=== PATIENT | male | born 1965 | race Caucasian/White ===

== ENCOUNTER 2021-04-29 12:00 | Emergency (ER) | payer OTHER, SELFPAY ==
--- NOTE | ~2021-04-29 | XR_ITS ---
XR chest 1V 04/29/2021 12:31 Indication: Low oxygen saturation. Dyspnea. Procedure: AP portable chest Comparison: No prior studies for comparison. Findings: Heart size normal. There is right upper lobe airspace consolidation. No pleural effusion. N o pneumothorax. No acute osseous abnormality. Impression: 1: Right upper lobe airspace consolidation, consistent with pneumonia. Reviewed, dictated and finalized at location B. Impression: 1: Right upper lobe airspace consolidation, consistent with pneumonia.
[2021-04-29 12:19] VITALS: BP 118/61; PULSE 121; RESP 42; TEMP 38.3; O2SAT 92
--- NOTE | 2021-04-29 12:33 | ED.GENADULT ---
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 Patient and friend indicate he is been sick for about 1 week with history of cough, right upper back pain. Symptoms are moderate, worse with sleeping/supine at night, associated with loose stools diarrhea/dehydration and some weight loss. Vital signs remarkable for pulse 120s, febrile 100.9, pulse ox 92 ; patient advised to go to hospital to which he agrees. Related Data Home Medications Medication Instructions Recorded Confirmed No Home Medications 04/29/21 04/29/21 Allergies Allergy/AdvReac Type Severity Reaction Status Date / Time No Known Allergies Allergy Verified 04/29/21 12:45 Review of Systems Review of Systems: Narrative: General/Constitutional: weight loss, REPORTS possible fever Eyes: N0: Redness,discharge Ears/Nose/Throat: No: Epistaxis,ear discharge Respiratory: Denies: Hemoptysis Gastrointestinal: No Vomiting, Bleeding-rectal Skin: No Lumps, eruption Neurologic: No Focal Weakness,Sz Hematologic: Denies: Petechiae/Purpura Psychiatric: No: Suicida ideationl All Other Systems: Reviewed and Negative PMFSH Comments At time of signature, agree with nursing past medical, surgical, social and family history. There is no relevant family history pertinent to the presenting complaint Exam Narrative: Exam Narrative: General Appearance: Thin/lean, unwell, EYE: PERRLA, Conjunctiva clear Nose: Rhinorrhea, Mucousal erythema Mouth/Throat: MM dry, Uvula midline, Pharyngeal erythema Neck: Supple, No adenopathy Respiratory: Tachypneic, increased AP diameter, decreased BS justice right Cardiovascular: Tacky RRR, No JVD Musculoskeletal: Non tender, Normal strength Skin: Warm, Dry Neurological: A&O x3, CN II-XII intact Psychiatric: Normal mood, Normal affect Course Course Emergency Course: Films visualized, interpreted by radiologist, agree, ABnormal see report Vital Signs Vital signs: Vital Signs Temperature 100.9 F H 04/29/21 12:19 Pulse Rate 121 H 04/29/21 12:19 Respiratory Rate 42 H 04/29/21 12:19 Blood Pressure 118/61 04/29/21 12:19 Pulse Oximetry 92 04/29/21 12:19 Temperature 100.9 F H 04/29/21 12:19 Pulse Rate 128 H 04/29/21 12:55 Respiratory Rate 40 H 04/29/21 12:34 Blood Pressure 118/61 04/29/21 12:19 Pulse Oximetry 95 04/29/21 12:55 Medical Decision Making MDM Narrative Medical decision making narrative: MDM Med Decision Making DATA REVIEWED LAB: RADIOLOGY: ordered & reviewed PMH RECORDS: reviewed DISCUSSED: with another provider TEST : personally over-read RISKS of M &M CC/PROBLEM severe PROCEDURE low Tx OPTIONS Vital Signs Vital Signs: Vital Signs Temperature 100.9 F H 04/29/21 12:19 Pulse Rate 121 H 04/29/21 12:19 Respiratory Rate 42 H 04/29/21 12:19 Blood Pressure 118/61 04/29/21 12:19 Pulse Oximetry 92 04/29/21 12:19 Temperature 100.9 F H 04/29/21 12:19 Pulse Rate 128 H 04/29/21 12:55 Respiratory Rate 40 H 04/29/21 12:34 Blood Pressure 118/61 04/29/21 12:19 Pulse Oximetry 95 04/29/21 12:55 Lab Data Labs: Lab Results 04/29/21 Range/Units 12:32 POC SARS CoV-2 Ag Negative (Negative) Critical Care Time Critical Care Time Critical Care Time: Yes Total Critical Care Time: 30 Discharge Plan Discharge Clinical Impression: Hypoxemia Pneumonia involving right lung Qualifiers: Pneumonia t
[2021-04-29 12:34] VITALS: PULSE 124; RESP 40; O2SAT 92
[2021-04-29] MEDS: IPRATROPIUM BR 0.02% INH SOLN 0.5 MG/2.5 ML VIAL INHALATION (12:34)
[2021-04-29] MEDS: ALBUTEROL SULFATE NEB 2.5 MG/0.5 ML INH INHALATION (12:34)
[2021-04-29] MEDS: AZITHROMYCIN 250 MG TABLET 500 MG PO (12:39)
[2021-04-29 12:55] VITALS: PULSE 128; O2SAT 95
--- NOTE | 2021-04-29 13:28 | PC.NURSE ---
1255-EMS here. Neb treatment almost completed. Pt transferred to EMS stretcher with standby assist. Bedside report given to EMS. Pt appears slightly less tachypneic at this time. Still pale.
== END 2021-04-29 12:55 | disposition short-term general hospital (02) ==
PROVIDERS: Emergency Provider Emergency Medicine
DX: R09.02 Hypoxemia (principal); J18.1 Lobar pneumonia, unspecified organism; Z20.822 Contact with and (suspected) exposure to COVID-19
CPT/HCPCS: 71045; 87426; 94640; 99215; A9270; C9803; G0463

== ENCOUNTER 2021-04-29 13:16 | Inpatient (IN) | payer OTHER, SELFPAY ==
[2021-04-29] VITALS (8 sets, daily range): BP systolic 90–118; BP diastolic 60–78; PULSE 87–115; RESP 16–37; TEMP 36.6–37.4; O2SAT 91–97; BMI 15.9
--- NOTE | ~2021-04-29 | XR_ITS ---
XR chest 2V 05/02/2021 11:31 Indication: Right upper lobe pneumonia. Dyspnea. Procedure: 2 view chest Comparison: 04/29/2021 Findings: Slightly improved aeration with persistent extensive pneumonia of the right upper lobe. Hea rt size normal. Left lung clear. No pleural effusion or pneumothorax. No acute osseous abnormality. Impression: 1: Subtle improvement of extensive right upper lobe pneumonia. Reviewed, dictated and finalized at location B. Impression: 1: Subtle improvement of extensive right upper lobe pneumonia.
--- NOTE | ~2021-04-29 | CT_ITS ---
EXAMINATION:CT diagnostic chest w con DATE: 05/02/2021 17:24 INDICATION: Right upper lobe pneumonia. Leukocytosis. TECHNIQUE: Computed tomography (CT) of the chest was performed with 75 mL Omnipaque 350 intravenous c ontrast. Automated exposure control and iterative reconstruction technique were employed. The dose-le ngth product (DLP) was 138.40 mGy-cm. COMPARISON: Chest 2 views 05/02/2021 FINDINGS: There is moderate emphysema. There is extensive airspace opacities in right upper lobe with extensive cavitation. There are centrilobular nodules with cavitation in right lower lobe. There are nodules in right middle lobe and left upper lobe. No pleural effusion. The heart size is normal. The re is a small pericardial effusion. There is mild right hilar and mediastinal lymphadenopathy. There is mild thoracic spondylosis. IMPRESSION: 1. Extensive necrotizing pneumonia in right lung upper lobe. Mild pneumonia involving right lower lob e, right middle lobe, and left upper lobe. 2. Mild right hilar and mediastinal lymphadenopathy, likely reactive. 3. Moderate emphysema. 4. Small pericardial effusion. Reviewed, dictated and finalized at location A. IMPRESSION: 1. Extensive necrotizing pneumonia in right lung upper lobe. Mild pneumonia inv olving right lower lobe, right middle lobe, and left upper lobe. 2. Mild right hilar and mediastinal lymphadenopathy, likely reactive. 3. Moderate emphysema. 4. Small pericardial effusion.
--- NOTE | ~2021-04-29 | XR_ITS ---
EXAMINATION: XR chest 2V EXAM DATE: 04/29/2021 14:10 INDICATION: Shortness of breath. Pneumonia. TECHNIQUE: Frontal and lateral projections of the chest obtained and reviewed. Comparison is made to prior examination from earlier same day. FINDINGS: Dense right upper lobe consolidation, appearance most consistent with bacterial pneumonia b ut follow-up exam to resolution is indicated to exclude any underlying cancer. The lungs are otherwis e clear. There are no pleural effusions. The cardiomediastinal silhouette is within normal limits. There is no pneumothorax suspected. The bones and soft tissues are unremarkable. IMPRESSION: Dense right upper lobe consolidation probably bacterial pneumonia; recommend 1 month foll ow-up exam. Reviewed, dictated and finalized at location A. IMPRESSION: Dense right upper lobe consolidation probably bacterial pneumonia; recommend 1 month follow-up exam.
--- NOTE | ~2021-04-29 | US_ITS ---
EXAMINATION: US abdomen limited EXAM DATE: 05/02/2021 11:35 INDICATION: Elevated liver function tests. Low albumin level. TECHNIQUE: Multiple grayscale and Doppler images of the abdomen right upper quadrant were obtained (marita y a technologist who performed the scan) and subsequently reviewed. There is no prior study for wesley lechuga. FINDINGS: The pancreatic head and body are normal in appearance. The pancreatic tail is not visualized. The l iver has normal echogenicity and contour. There are no focal liver lesions identified. There is no evidence of intrahepatic biliary duct dilation. Portal venous flow was seen in the hepatopedal, nor mal direction and has normal Doppler waveform. No right-sided hydronephrosis. Common bile duct measures 3 mm, which is normal. Gallbladder is contracted, with wall thickness of 3 mm probably from contracted state. There is no pericholecystic fluid or cholelithiasis. IMPRESSION: 1. Unremarkable abdominal ultrasound exam. Reviewed, dictated and finalized at location A.
--- NOTE | 2021-04-29 13:19 | ECG_ITS ---
Measurements Intervals [place] Rate: 116 P: 64 MD: 134 QRS: 93 QRSD: 90 T: 60 QT: 434 QTc: 605 Interpretive Statements SINUS TACHYCARDIA RIGHT AXIS DEVIATION BORDERLINE ST-T WAVE ABNORMALITY- ANTEROLAT/INF LEADS BASELINE ARTIFACT- II, V4-V6 ABNORMAL ECG Electronically Signed On 04-29-2021 21:04:05 CDT by Dann Kincaid D.O.
--- NOTE | 2021-04-29 14:38 | ED.SOB ---
HPI - SOB/Dyspnea General Chief Complaint: Shortness of Breath/Dyspnea Stated Complaint: SOB Time Seen by Provider: 04/29/21 14:37 Source: patient and EMS Mode of arrival: EMS Limitations: no limitations History of Present Illness HPI Narrative: Patient is a 55-year-old male with no past medical history who presents for evaluation of shortness of breath. Patient initially presented to an urgent care where he was found to be tachycardic, tachypneic, hypoxic, given a breathing treatment and ultimately transported to our facility via EMS. Patient denying any current chest pain. He reports mild cough without hemoptysis. He reports shortness of breath. He reports low-grade fever. He denies history of COPD, but states that he has been a heavy smoker most of his life. He currently is still smoking. He denies history of cancer. Denies any focal weakness or numbness. Patient denies any drug use. Patient denies history of Covid. He is not vaccinated. Pt also reporting history of diarrhea over past week. He states his COVID swab was negative. Related Data Home Medications Medication Instructions Recorded Confirmed No Home Medications 04/29/21 04/29/21 Allergies Allergy/AdvReac Type Severity Reaction Status Date / Time No Known Allergies Allergy Verified 04/29/21 12:45 Review of Systems Review of Systems: Narrative: CONSTITUTIONAL: Reports fever and chills EYES: Denies visual changes, redness, or discharge. ENT: Denies rhinorrhea, congestion, sore throat, or otalgia. CARDIOVASCULAR: Denies chest pain, palpitations, or edema. RESPIRATORY: Reports cough and shortness of breath GASTROINTESTINAL: Denies abdominal pain, reports nausea and diarrhea GENITOURINARY: Denies dysuria or hematuria. SKIN: Denies rash or itching. MUSCULOSKELETAL: Denies back pain, joint pain, or myalgia. NEUROLOGIC: Denies headache, numbness, or weakness. Exam Narrative: Exam Narrative: GENERAL: Awake, alert, conversant, thin HEAD: Normocephalic, atraumatic. EYES: PERRLA and EOMI. ENT: Nares clear, no rhinorrhea or epistaxis. Mucous membranes dry NECK: Supple. CHEST: Respiratory distress, tachypneic, increased work of breathing with use of abdominal accessory muscles to breathe, coarse breath sound right upper airway, diminished aeration both lung bases HEART: Tachycardic rate, sinus rhythm ABDOMEN:Non distended, non tender EXTREMITIES: Normal range of motion. No edema. SKIN: Warm, dry, no rash. NEURO:No focal deficits. Alert and oriented x3 Course Vital Signs Vital signs: Vital Signs Temperature 37.4 C 04/29/21 13:16 Pulse Rate 115 H 04/29/21 13:16 Respiratory Rate 37 H 04/29/21 13:16 Blood Pressure 102/78 04/29/21 13:16 Pulse Oximetry 95 04/29/21 13:16 Temperature 37.4 C 04/29/21 13:16 Pulse Rate 104 H 04/29/21 15:40 Respiratory Rate 33 H 04/29/21 15:40 Blood Pressure 102/78 04/29/21 13:16 Pulse Oximetry 97 04/29/21 15:40 MDM - SOB/Dyspnea MDM Narrative Medical decision making narrative: Patient presenting to the emergency department for evaluation of shortness of breath, hypoxia. At the time of assessment, patient is in respiratory distress, with tachypnea and increased work of breathing including use of accessory muscles to breathe. Patient mentation is normal. IV access obtained and labs are drawn. Patient is meeting criteria for sepsis, he was given a 30 mL/kg fluid bolus. Laboratory results show mild elevation in lactic acid. He has a leukocytosis with left shift. Mild hypokalemia which was replenished with oral potassium. No acute kidney injury. Patient has a mixed acid-base status on ABG with a respiratory alkalosis. Likely secondary what appears to be consistent with bacterial pneumonia on chest x-ray. Patient was continued on 2 L nasal cannula. He was given broad-spectrum antibiotics to cover any respiratory pathogens. Patient was swabbed for Covid although COVID swab at is negative.
[2021-04-29 14:40] LABS: Basophils Percent Auto 0.2 % (0.2-1.2); Hematocrit 37.4 % (42.0-52.0); Immature Granulocyte Percent A 1.8 % (0-0.5); Lymphocytes Absolute Auto 0.86 K/mm3 (0.9-3.2); Lymphocytes Percent Auto 7.8 % (18.3-44.2); Mean Corpuscular HGB Conc 34.8 g/dl (32-36); Mean Corpuscular Hemoglobin 33.2 pg (26-34); Mean Corpuscular Volume 95.4 fl (80-100); Mean Platelet Volume 11.2 fl (7.4-10.4); Monocytes Absolute Auto 1.7 K/mm3 (0.1-0.6); Monocytes Percent Auto 15.1 % (2.6-8.5); Neutrophils Absolute Auto 8.3 K/mm3 (1.3-6.7); Neutrophils Percent Auto 75.1 % (45.5-73.1); Platelet Count Result 312 k/mm3 (150-375); Red Blood Count 3.92 M/mm3 (4.6-6.20); Red Cell Distribution Width 12.5 % (11.5-14.5); White Blood Count 11.1 K/mm3 (4.5-10.0)
[2021-04-29 14:49] LABS: Anion Gap 12 mmol/L (8-16); Blood Urea Nitrogen 39 mg/dL (9-20); Calcium 8.6 mg/dL (8.4-10.2); Carbon Dioxide 20 mmol/L (22-30); Chloride 103 mmol/L (98-107); Estimated CRCL calculation 57 ml/min; Estimated Glomerular Filt Rate > 60; Glucose 121 mg/dL (75-110); Lactic Acid Reflex 2.2 mmol/L (0.7-2.1); Potassium 2.9 mmol/L (3.4-5.0); Sodium 135 mmol/L (137-145)
[2021-04-29] MEDS: methylPREDNISolone SOD SUCC 125 MG VIAL IV PUSH (14:52)
[2021-04-29] MEDS: ACETAMINOPHEN 500 MG TABLET 1000 MG PO (14:52)
[2021-04-29] MEDS: SODIUM CHLORIDE 0.9% IV 1,000 ML 999 ML IV CONT ×3 (14:53→17:44)
[2021-04-29] MEDS: ALBUTEROL SULFATE NEB 2.5 MG/0.5 ML INH 20 MG INHALATION (14:56)
[2021-04-29] MEDS: IPRATROPIUM BR 0.02% INH SOLN 0.5 MG/2.5 ML VIAL 2 MG INHALATION (14:56)
[2021-04-29] MEDS: MAGNESIUM SULF 2 GM/WATER 50ML 2 GM/50 ML BAG IVPB (15:03)
[2021-04-29 15:05] LABS: Alveolar/Arterial O2 Gradient 64.8 mmHg; Base Excess ABG 0.3 mEq/l (+/-2.0); Carboxyhemoglobin 0.3 % THb (0-2.0); Fractional Inspired Oxygen 21 %; HCO3 ABG 21.7 mEq/l (22.0-26.0); Methemoglobin ABG 0.1 %THb (0-1.5); Oxygen Content ABG 16.7 %vol (16.0-22.0); Oxygen Saturation ABG 91.4 % (95.0-100.0); Oxyhemoglobin 88.7 % THb (90.0-100.0); PCO2 ABG 26.7 mmHg (35.0-45.0); PO2 FiO2 Ratio Arterial Blood 2.52 %; Reduced Hemoglobin 10.9 %THb (0-5.0); Total Hemoglobin 13.4 g/dL (12.0-18.0)
[2021-04-29 15:06] LABS: Device ROOM AIR; Modified Allen's Test Pass; Site Drawn LEFT RADIAL; pH ABG 7.528 (7.350-7.450)
[2021-04-29 17:38] LABS: Reflex Lactic Acid Yes or No Add Lactic
[2021-04-29] MEDS: POTASSIUM CHLORIDE 20 MEQ PACKET (FOR LIQUID) 40 MEQ PO (17:45)
--- NOTE | 2021-04-29 18:20 | ADMGEN ---
This patient, Moshe Varma, was admitted to [facility] Room 326-01. Patient/family oriented to hospital policies and general routines including ID bracelet, bed and alarms, visiting hours, pain management, procedures, bathroom and other care routines, personal items, smoking policy, room service/diet, and visiting hours. Information on how to activate the Rapid Response Team has been discussed. Patient/Family are encouraged to report perceived risks to care and to ask questions if they do not understand what they are told or what they should do.
[2021-04-29 18:30] LABS: Lactic Acid 3.7 mmol/L (0.7-2.1)
--- NOTE | 2021-04-29 22:22 | PM.IMHP ---
H&P: HPI History of Present Illness Date/Time: 04/29/21 22:22 Chief Complaint: Weakness Narrative: 55-year-old male with past medical history of chronic tobacco abuse who presented to the ER from urgent care due to weakness. Source of information is ER records and patient report. The patient is a poor historian. As far as I can tell the patient has been having increased shortness of breath for about a week. He also had some associated weakness which he could not specify. He has had a cough intermittently productive of green sputum. He denies having any fevers or chills. The patient has a thin body habitus and he reports a good appetite. I asked him if he had recent weight loss any said that he has been this skinny ?since he got really sick this time.? Upon further questioning it seems that the patient was referring to this acute illness is been going on for the last week. He denies any chest pain or palpitations. He denies any known recent ill contacts. He denies any loss of sense of taste or smell. Denies any headache or visual changes. He has chronic bed dentition but denies any acute oral pain. He reports having normal bowel movements without hematochezia or melena. He denies difficulty with urination. He has not noticed any orthopnea, paroxysmal nocturnal dyspnea or lower extremity swelling. 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 In the ER the patient presented with tachycardia, tachypnea, and borderline hypotension. He was noted to have lactic acidosis and leukocytosis as well as a dense right upper lobe pneumonia. He has not seen a primary care physician in several years. He denies any known past medical history. He has never had any surgeries. The patient's mother as multiple other medical conditions but the patient states that he ?did not inherited any of them. He cannot tell me or past medical history be on hypertension. His father at age 41 of a massive stroke. Review of Systems Review of Systems: Narrative: 12 systems were reviewed with pertinent positives and negatives per HPI. Except as documented in the HPI, all other systems were reviewed and are negative. [facility] Past Medical History Medical History (Updated 04/29/21 @ 22:32 by Natasha John DO) Tobacco dependence due to cigarettes Surgical History Surgical History (Updated 04/29/21 @ 22:32 by Natasha John DO) No history of previous surgery Family History Family History Mother Hypertension Father Cerebrovascular accident, Onset Age: 41 Social History Social History (Updated 04/29/21 @ 22:36 by Natasha John DO) Social History: He lives in [facility] with his girlfriend. He has never been . Has 1 daughter who is 36 years old. He has smoked between 1-2.5 packs of cigarettes a day since he was 10 years old. He denies any alcohol or illicit substance use. He works for an [employer]. Smoking packs per day: 2.5 Smoking cigarettes per day: 50.0 Years smoked: 45 Smoking pack-years: 112.50 Smoking status: Current every day smoker Tobacco type: cigarettes Alcohol intake: never Substance use type: does not use Gender identity (if verbalized by the patient): Male Spiritual care concerns: No Meds Home Medications and Allergies Home Medications Medication Instructions Recorded Confirmed Type No Home Medications 04/29/21 04/29/21 History Allergies Allergy/AdvReac Type Severity Reaction Status Date / Time No Known Allergies Allergy Verified 04/29/21 18:14 Vital Signs Vital Signs - 24 hr 04/29/21 13:16 04/29/21 14:32 04/29/21 14:56 Temperature 99.3 F Pulse Rate 115 H 110 H 109 H Respiratory Rate 37 H 36 H Blood Pressure 102/78 Pulse Oximetry 95 04/29/21 15:40 04/29/21 17:27 04/29/21 17:46 Temperature Pulse Rate 104 H 94 93 Respiratory Rate 33 H
[2021-04-30] VITALS (15 sets, daily range): BP systolic 101–112; BP diastolic 63–69; PULSE 66–94; RESP 16–30; TEMP 36.7–37.3; O2SAT 92–96; BMI 15.9
--- NOTE | 2021-04-30 03:42 | PCRCNOTE ---
Window of time for administration has passed. See next scheduled administration.
[2021-04-30] MEDS: IPRATROPIUM BR 0.02% INH SOLN 0.5 MG/2.5 ML VIAL INHALATION ×4 (03:49→21:27)
[2021-04-30] MEDS: ALBUTEROL SULFATE NEB 2.5 MG/0.5 ML INH 5 MG INHALATION ×4 (03:49→21:26)
[2021-04-30] MEDS: SODIUM CHLORIDE 0.9% IV 1,000 ML 150 ML IV CONT (03:56)
--- NOTE | 2021-04-30 05:13 | PCRCNOTE ---
Sputum obtained prior to treatment.
[2021-04-30 06:19] LABS: Hematocrit 33.2 % (42.0-52.0); Hemoglobin 11.4 g/dL (14.0-18.0); Mean Corpuscular HGB Conc 34.3 g/dl (32-36); Mean Corpuscular Hemoglobin 32.9 pg (26-34); Mean Corpuscular Volume 95.7 fl (80-100); Mean Platelet Volume 11.3 fl (7.4-10.4); Platelet Count Result 312 k/mm3 (150-375); Red Blood Count 3.47 M/mm3 (4.6-6.20); Red Cell Distribution Width 12.5 % (11.5-14.5); White Blood Count 9.6 K/mm3 (4.5-10.0)
[2021-04-30 06:27] LABS: Lactic Acid Reflex 1.6 mmol/L (0.7-2.1)
[2021-04-30 07:00] LABS: Anion Gap 8 mmol/L (8-16); Blood Urea Nitrogen 22 mg/dL (9-20); Calcium 7.5 mg/dL (8.4-10.2); Carbon Dioxide 20 mmol/L (22-30); Chloride 111 mmol/L (98-107); Estimated CRCL calculation 72 ml/min; Estimated Glomerular Filt Rate > 60; Glucose 123 mg/dL (75-110); Magnesium 2.6 mg/dL (1.6-2.3); Potassium 2.8 mmol/L (3.4-5.0); Sodium 139 mmol/L (137-145)
[2021-04-30] MEDS: POTASSIUM CHLORIDE 20 MEQ TABLET 60 MEQ PO (08:47)
[2021-04-30] MEDS: ENOXAPARIN 40 MG/0.4 ML SYRINGE SUB-Q (08:47)
--- NOTE | 2021-04-30 13:27 | PCNSR ---
On 04/30/21, the student,Symone More, provided care and completed [facility] documentation on this patient. I have reviewed the student's documentation and agree with the findings.
[2021-04-30 13:31] LABS: Potassium 3.5 mmol/L (3.4-5.0)
--- NOTE | 2021-04-30 16:36 | PM.IMPN ---
Progress Note: A&P Assessment and Plan (1) Sepsis: Qualifiers: Acute respiratory failure type: with hypoxia Sepsis acute organ dysfunction status: with acute organ dysfunction Sepsis type: sepsis due to unspecified organism Severe sepsis acute organ dysfunction type: acute respiratory failure Severe sepsis shock status: without septic shock Qualified Code(s): A41.9 - Sepsis, unspecified organism; R65.20 - Severe sepsis without septic shock; J96.01 - Acute respiratory failure with hypoxia Code(s): A41.9 - Sepsis, unspecified organism Status: Acute Assessment and Plan: The patient met sepsis criteria on admission with tachycardia, tachypnea, hypotension, leukocytosis, hypoxemia and lactic acidosis in the setting of acute right upper lobe community acquired pneumonia. Blood cultures are pending. The patient received 2-3 L of isotonic fluids in the ER with resolution of his tachycardia. His tachypnea improved after nebulizer treatments and antibiotic therapy. His lactic acidosis worsened but this was also associated around the same time the patient was having hypotension. His hypotension has subsequently resolved with IV fluid hydration. The patient has been started on empiric antibiotic therapy with Rocephin and azithromycin for Community aquired pneumonia. Patient is on isolation while COVID PCR is pending. COVID is less likely given the localized nature the patient's pneumonia. Given his significant smoking history he is at risk for malignancy and would benefit from follow-up imaging to rule out underlying mass. Pending sputum culture Blood cultures negative to date Urine antigens sent and pending Continue monitoring vitals, labs (2) Pneumonia involving right lung: Qualifiers: Lung location: upper lobe of lung Pneumonia type: due to unspecified organism Qualified Code(s): J18.9 - Pneumonia, unspecified organism Code(s): J18.9 - Pneumonia, unspecified organism Status: Acute Assessment and Plan: See above (3) Acute exacerbation of chronic obstructive airways disease: Code(s): J44.1 - Chronic obstructive pulmonary disease with (acute) exacerbation Status: Acute Assessment and Plan: The patient does not have a known diagnosis of COPD but he does have hyperinflation on his x-ray and given his significant smoking history he meets clinical criteria for COPD. Patient did receive 1 dose of IV Solu-Medrol in the ER. He is not overtly hypoxic but does have some hypoxemia. Will hold off on giving additional steroid therapy at this time. Continue Duoneb treatments Q6hrs. No significant wheezing on examination. (4) Hypoxemia: Code(s): R09.02 - Hypoxemia Status: Inactive (5) Hypokalemia: Code(s): E87.6 - Hypokalemia Status: Acute Assessment and Plan: Potassium 2.8 this morning, improved to 3.5 after 60 mEq potassium. Recheck in the morning. (6) Lactic acidosis: Code(s): E87.2 - Acidosis Status: Acute Assessment and Plan: Normal now. Additional Plan Patient was admitted as observation status however given his clinical picture likely need want to midnight. Time Spent With Patient Time with patient: 25 - 35 minutes Subjective Date/time seen: 04/30/21 16:36 Interval history: Date of service 04/30/2021: Patient reports improvement of his breathing today. He is able to walk around his room with less dyspnea. He still coughing up yellow sputum production, but it is less frequent. He denies any fevers, chills, chest pain, nausea, vomiting, abdominal pain, leg swelling, calf pain or any other symptoms at this time. Review of Systems Review of Systems: All systems reviewed & are unremarkable except as noted in HPI and below Exam Narrative: Exam Narrative: General: 55-year-old cachectic man sitting up on the side of the bed drinking some water. Appears comfor
[2021-04-30 23:31] LABS: SARS-CoV-2 RNA PCR Negative
[2021-05-01] VITALS (13 sets, daily range): BP systolic 107–121; BP diastolic 60–84; PULSE 78–99; RESP 16–30; TEMP 36.3–37.2; O2SAT 94–97
[2021-05-01] MEDS: IPRATROPIUM BR 0.02% INH SOLN 0.5 MG/2.5 ML VIAL INHALATION ×3 (02:38→20:48)
[2021-05-01] MEDS: ALBUTEROL SULFATE NEB 2.5 MG/0.5 ML INH 5 MG INHALATION ×3 (02:38→20:48)
[2021-05-01 07:16] LABS: Basophils Absolute Auto 0.1 K/mm3 (0.0-0.1); Basophils Percent Auto 0.7 % (0.2-1.2); Eosinophils Percent Auto 0.1 % (0-4.4); Hematocrit 32.9 % (42.0-52.0); Hemoglobin 11.3 g/dL (14.0-18.0); Immature Granulocyte Absolute 0.13 K/mm3 (0.00-0.031); Immature Granulocyte Percent A 1.2 % (0-0.5); Lymphocytes Absolute Auto 1.37 K/mm3 (0.9-3.2); Lymphocytes Percent Auto 12.3 % (18.3-44.2); Mean Corpuscular HGB Conc 34.3 g/dl (32-36); Mean Corpuscular Hemoglobin 32.8 pg (26-34); Mean Corpuscular Volume 95.4 fl (80-100); Mean Platelet Volume 11.3 fl (7.4-10.4); Monocytes Absolute Auto 1.4 K/mm3 (0.1-0.6); Monocytes Percent Auto 12.2 % (2.6-8.5); Neutrophils Absolute Auto 8.2 K/mm3 (1.3-6.7); Neutrophils Percent Auto 73.5 % (45.5-73.1); Platelet Count Result 346 k/mm3 (150-375); Red Blood Count 3.45 M/mm3 (4.6-6.20); Red Cell Distribution Width 12.7 % (11.5-14.5); White Blood Count 11.2 K/mm3 (4.5-10.0)
[2021-05-01 07:34] LABS: Anion Gap 7 mmol/L (8-16); Blood Urea Nitrogen 22 mg/dL (9-20); Calcium 7.8 mg/dL (8.4-10.2); Carbon Dioxide 20 mmol/L (22-30); Chloride 110 mmol/L (98-107); Estimated CRCL calculation 72 ml/min; Estimated Glomerular Filt Rate > 60; Glucose 92 mg/dL (75-110); Magnesium 2.4 mg/dL (1.6-2.3); Potassium 3.2 mmol/L (3.4-5.0); Sodium 137 mmol/L (137-145)
[2021-05-01] MEDS: POTASSIUM CHLORIDE 20 MEQ TABLET 40 MEQ PO (08:27)
[2021-05-01] MEDS: ENOXAPARIN 40 MG/0.4 ML SYRINGE SUB-Q (08:27)
[2021-05-01 09:11] LABS: Alanine Aminotransferase 47 U/L (4-50); Albumin Level 2.4 g/dL (3.5-5.1); Alkaline Phosphatase 55 U/L (38-126); Anion Gap 8 mmol/L (8-16); Aspartate Amino Transferase 98 U/L (17-59); Bilirubin,Total 0.2 mg/dL (0.2-1.3); Blood Urea Nitrogen 22 mg/dL (9-20); Calcium 7.9 mg/dL (8.4-10.2); Carbon Dioxide 19 mmol/L (22-30); Chloride 110 mmol/L (98-107); Estimated CRCL calculation 82 ml/min; Estimated Glomerular Filt Rate > 60; Glucose 86 mg/dL (75-110); Potassium 3.3 mmol/L (3.4-5.0); Sodium 137 mmol/L (137-145)
[2021-05-01 09:23] LABS: Parathyroid Intact 12.9 pg/mL (7.5-53.5)
--- NOTE | 2021-05-01 09:30 | PM.IMPN ---
Progress Note: A&P Assessment and Plan (1) Sepsis: Qualifiers: Acute respiratory failure type: with hypoxia Sepsis acute organ dysfunction status: with acute organ dysfunction Sepsis type: sepsis due to unspecified organism Severe sepsis acute organ dysfunction type: acute respiratory failure Severe sepsis shock status: without septic shock Qualified Code(s): A41.9 - Sepsis, unspecified organism; R65.20 - Severe sepsis without septic shock; J96.01 - Acute respiratory failure with hypoxia Code(s): A41.9 - Sepsis, unspecified organism Status: Acute Assessment and Plan: The patient met sepsis criteria on admission with tachycardia, tachypnea, hypotension, leukocytosis, hypoxemia and lactic acidosis in the setting of acute right upper lobe community acquired pneumonia. The patient received 2-3 L of isotonic fluids in the ER with resolution of his tachycardia. His tachypnea improved after nebulizer treatments and antibiotic therapy. His lactic acidosis improved with IV fluids His hypotension has subsequently resolved with IV fluid hydration. The patient has been started on empiric antibiotic therapy with Rocephin and azithromycin for Community acquired pneumonia COVID PCR negative. COVID is less likely given the localized nature the patient's pneumonia. Given his significant smoking history he is at risk for malignancy and would benefit from follow-up imaging to rule out underlying mass. Pending sputum culture Blood cultures negative to date Urine antigens sent and pending Will recheck the patients CXR in the morning, pending sputum cultures to see if we are treating him correctly. Continue monitoring vitals, labs (2) Pneumonia involving right lung: Qualifiers: Lung location: upper lobe of lung Pneumonia type: due to unspecified organism Qualified Code(s): J18.9 - Pneumonia, unspecified organism Code(s): J18.9 - Pneumonia, unspecified organism Status: Acute Assessment and Plan: See above (3) Acute exacerbation of chronic obstructive airways disease: Code(s): J44.1 - Chronic obstructive pulmonary disease with (acute) exacerbation Status: Acute Assessment and Plan: The patient does not have a known diagnosis of COPD but he does have hyperinflation on his x-ray and given his significant smoking history he meets clinical criteria for COPD. Patient did receive 1 dose of IV Solu-Medrol in the ER. He is not overtly hypoxic but does have some hypoxemia. Will hold off on giving additional steroid therapy at this time. Continue Duoneb treatments Q6hrs. No significant wheezing on examination. (4) Hypoxemia: Code(s): R09.02 - Hypoxemia Status: Inactive (5) Hypokalemia: Code(s): E87.6 - Hypokalemia Status: Acute Assessment and Plan: Potassium 3.3 this morning, will give 40 mEq potassium. Recheck in the morning. (6) Lactic acidosis: Code(s): E87.2 - Acidosis Status: Acute Assessment and Plan: Normal now. (7) Vitamin D deficiency: Code(s): E55.9 - Vitamin D deficiency, unspecified Status: Acute Assessment and Plan: Found to be severely deficient. Could be from malnutrition. Will give ergocalciferol 50,000 mcg (vit D2) once per week for 8 weeks, then daily 800 international units of cholecalciferol (vit D3) daily afterwards Will need to follow up with PCP for which he has not seen a doctor in years. (8) Hypoalbuminemia: Code(s): E88.09 - Other disorders of plasma-protein metabolism, not elsewhere classified Status: Acute Assessment and Plan: Could be from malnutrition, he is cachectic with BMI 15. Could be related to his liver with LFT elevations. Will obtain liver US for further evaluation. (9) Hypocalcemia: Code(s): E83.51 - Hypocalcemia Status: Acute Assessment and Plan: Ca correction for albumin is no
[2021-05-01 09:52] LABS: Vitamin D 25 Hydroxy < 12.8 ng/mL
[2021-05-01] MEDS: ERGOCALCIFEROL 50,000 UNIT CAPSULE 50000 UNITS PO (14:30)
[2021-05-02] VITALS (10 sets, daily range): BP systolic 98–120; BP diastolic 52–71; PULSE 85–105; RESP 18–32; TEMP 36.8–37; O2SAT 94–100
[2021-05-02] MEDS: IPRATROPIUM BR 0.02% INH SOLN 0.5 MG/2.5 ML VIAL INHALATION ×4 (02:14→20:59)
[2021-05-02] MEDS: ALBUTEROL SULFATE NEB 2.5 MG/0.5 ML INH 5 MG INHALATION ×4 (02:15→20:59)
[2021-05-02 06:05] LABS: Basophils Percent Auto 0.2 % (0.2-1.2); Eosinophils Percent Auto 0.2 % (0-4.4); Hematocrit 33.8 % (42.0-52.0); Hemoglobin 11.6 g/dL (14.0-18.0); Immature Granulocyte Absolute 0.25 K/mm3 (0.00-0.031); Immature Granulocyte Percent A 1.7 % (0-0.5); Lymphocytes Absolute Auto 1.71 K/mm3 (0.9-3.2); Lymphocytes Percent Auto 11.5 % (18.3-44.2); Mean Corpuscular HGB Conc 34.3 g/dl (32-36); Mean Corpuscular Hemoglobin 33.2 pg (26-34); Mean Corpuscular Volume 96.8 fl (80-100); Mean Platelet Volume 10.7 fl (7.4-10.4); Monocytes Absolute Auto 1.1 K/mm3 (0.1-0.6); Monocytes Percent Auto 7.6 % (2.6-8.5); Neutrophils Absolute Auto 11.7 K/mm3 (1.3-6.7); Neutrophils Percent Auto 78.8 % (45.5-73.1); Platelet Count Result 322 k/mm3 (150-375); Red Blood Count 3.49 M/mm3 (4.6-6.20); Red Cell Distribution Width 12.9 % (11.5-14.5); White Blood Count 14.8 K/mm3 (4.5-10.0)
[2021-05-02 06:13] LABS: Alanine Aminotransferase 44 U/L (4-50); Albumin Level 2.2 g/dL (3.5-5.1); Alkaline Phosphatase 69 U/L (38-126); Anion Gap 9 mmol/L (8-16); Aspartate Amino Transferase 61 U/L (17-59); Bilirubin,Total 0.2 mg/dL (0.2-1.3); Blood Urea Nitrogen 15 mg/dL (9-20); Calcium 7.8 mg/dL (8.4-10.2); Carbon Dioxide 18 mmol/L (22-30); Chloride 109 mmol/L (98-107); Estimated CRCL calculation 72 ml/min; Estimated Glomerular Filt Rate > 60; Glucose 84 mg/dL (75-110); Magnesium 1.8 mg/dL (1.6-2.3); Potassium 3.4 mmol/L (3.4-5.0); Sodium 136 mmol/L (137-145)
[2021-05-02 06:41] LABS: INR 1.2; Prothrombin Time 15.3 Seconds (11.1-14.7)
[2021-05-02 06:42] LABS: Partial Thromboplastin Time 34.9 SECONDS (22.3-36.8)
[2021-05-02 07:02] LABS: Hepatitis B Surface Antigen Negative (Negative)
[2021-05-02 07:08] LABS: HAV RESULT Negative (Negative); Hepatitis B Core IgM Result Negative (Negative)
[2021-05-02 07:19] LABS: Hepatitis C Virus Antibody Negative (Negative)
[2021-05-02] MEDS: ENOXAPARIN 40 MG/0.4 ML SYRINGE SUB-Q (08:29)
[2021-05-02] MEDS: POTASSIUM CHLORIDE 20 MEQ TABLET 40 MEQ PO (11:41)
--- NOTE | 2021-05-02 13:59 | PCNFU ---
Nutrition Follow-Up Complete: Unintended weight loss related to poor appetite from COPD and pneumonia as evidenced by a weight loss of 50lbs and a BMI of 15.9. Goal: Have patient consume at least 75% of meals. Patient is progressing towards goal. No new goal at this time. Pt current nutrition is a regular diet. Last recorded weight is 50.4 kg. Bowel Motility: + BM 05/01 Labs Reviewed: Hgb 11.6, Hct 33.8, Alb 2.2, Na 136 Meds Noted: Albuterol, Zithromax, Lovenox, Drisdol, Atrovent Neb, Nicotine Additional Notes: Followed up with patient. Patient reported that he has a pretty good appetite. He has been consuming 50%-100% of his trays. He stated he is going home later this evening per MD orders. He had no nutritional questions or concerns. Will follow up in 5 days.
--- NOTE | 2021-05-02 14:40 | PM.IMPN ---
Progress Note: A&P Assessment and Plan (1) Sepsis: Qualifiers: Acute respiratory failure type: with hypoxia Sepsis acute organ dysfunction status: with acute organ dysfunction Sepsis type: sepsis due to unspecified organism Severe sepsis acute organ dysfunction type: acute respiratory failure Severe sepsis shock status: without septic shock Qualified Code(s): A41.9 - Sepsis, unspecified organism; R65.20 - Severe sepsis without septic shock; J96.01 - Acute respiratory failure with hypoxia Code(s): A41.9 - Sepsis, unspecified organism Status: Acute Assessment and Plan: The patient met sepsis criteria on admission with tachycardia, tachypnea, hypotension, leukocytosis, hypoxemia and lactic acidosis in the setting of acute right upper lobe community acquired pneumonia. The patient received 2-3 L of isotonic fluids in the ER with resolution of his tachycardia. His tachypnea improved after nebulizer treatments and antibiotic therapy. His lactic acidosis improved with IV fluids His hypotension has subsequently resolved with IV fluid hydration. The patient has been started on empiric antibiotic therapy with Rocephin and azithromycin for Community acquired pneumonia (Day #3) COVID PCR negative. COVID is less likely given the localized nature the patient's pneumonia. Sputum culture shows normal oral luigi Blood cultures negative to date Repeat CXR this morning showing subtle improvement of pneumonia also having worsening leukocytosis. Consulted Pulmonology who went over the patients labs/CXR with me and concerned for underlying lung nodule to RUL. Plan for CT Chest with contrast and plans for Bronchoscopy tomorrow at 1 pm for further work up and evaluation. The patient understands and agrees with the plan. All questions answered. Continue monitoring vitals, labs (2) Pneumonia involving right lung: Qualifiers: Lung location: upper lobe of lung Pneumonia type: due to unspecified organism Qualified Code(s): J18.9 - Pneumonia, unspecified organism Code(s): J18.9 - Pneumonia, unspecified organism Status: Acute Assessment and Plan: See above (3) COPD (chronic obstructive pulmonary disease): Code(s): J44.9 - Chronic obstructive pulmonary disease, unspecified Status: Acute Assessment and Plan: The patient does not have a known diagnosis of COPD but he does have hyperinflation on his x-ray and given his significant smoking history he meets clinical criteria for COPD. Patient did receive 1 dose of IV Solu-Medrol in the ER. He is not overtly hypoxic but does have some hypoxemia. He has not had any more steroids since ER. No acute wheezing. Continue Duoneb treatments Q6hrs. No significant wheezing on examination. (4) Hypoxemia: Code(s): R09.02 - Hypoxemia Status: Inactive Assessment and Plan: On room air at this time. Initially was hypoxic in the emergency room but was able to be weaned off. Due to underlying pneumonia. (5) Hypokalemia: Code(s): E87.6 - Hypokalemia Status: Acute Assessment and Plan: Potassium 3.4 this morning, will give 40 mEq potassium. Since it is low normal. Magnesium 1.8. Normal. Recheck in the morning. (6) Lactic acidosis: Code(s): E87.2 - Acidosis Status: Acute Assessment and Plan: Normal now. (7) Vitamin D deficiency: Code(s): E55.9 - Vitamin D deficiency, unspecified Status: Acute Assessment and Plan: Found to be severely deficient. Could be from malnutrition. Will give ergocalciferol 50,000 mcg (vit D2) once per week for 8 weeks, then daily 800 international units of cholecalciferol (vit D3) daily afterwards Will need to follow up with PCP for whic
[2021-05-03] VITALS (31 sets, daily range): BP systolic 88–167; BP diastolic 56–105; PULSE 64–114; RESP 18–36; TEMP 36.1–37.3; O2SAT 81–100
[2021-05-03] MEDS: IPRATROPIUM BR 0.02% INH SOLN 0.5 MG/2.5 ML VIAL INHALATION ×4 (03:00→21:45)
[2021-05-03] MEDS: ALBUTEROL SULFATE NEB 2.5 MG/0.5 ML INH 5 MG INHALATION ×4 (03:00→21:45)
[2021-05-03 06:45] LABS: Basophils Absolute Auto 0.1 K/mm3 (0.0-0.1); Basophils Percent Auto 0.7 % (0.2-1.2); Eosinophils Absolute Auto 0.1 K/mm3 (0-0.3); Eosinophils Percent Auto 0.6 % (0-4.4); Hematocrit 35.9 % (42.0-52.0); Hemoglobin 12.1 g/dL (14.0-18.0); Immature Granulocyte Absolute 0.25 K/mm3 (0.00-0.031); Immature Granulocyte Percent A 1.8 % (0-0.5); Lymphocytes Absolute Auto 1.75 K/mm3 (0.9-3.2); Lymphocytes Percent Auto 12.7 % (18.3-44.2); Mean Corpuscular HGB Conc 33.7 g/dl (32-36); Mean Corpuscular Hemoglobin 32.9 pg (26-34); Mean Corpuscular Volume 97.6 fl (80-100); Mean Platelet Volume 10.4 fl (7.4-10.4); Monocytes Absolute Auto 1.2 K/mm3 (0.1-0.6); Monocytes Percent Auto 8.6 % (2.6-8.5); Neutrophils Absolute Auto 10.4 K/mm3 (1.3-6.7); Neutrophils Percent Auto 75.6 % (45.5-73.1); Platelet Count Result 369 k/mm3 (150-375); Red Blood Count 3.68 M/mm3 (4.6-6.20); White Blood Count 13.8 K/mm3 (4.5-10.0)
[2021-05-03 07:11] LABS: Anion Gap 7 mmol/L (8-16); Blood Urea Nitrogen 13 mg/dL (9-20); Calcium 7.9 mg/dL (8.4-10.2); Carbon Dioxide 19 mmol/L (22-30); Chloride 110 mmol/L (98-107); Estimated CRCL calculation 82 ml/min; Estimated Glomerular Filt Rate > 60; Glucose 105 mg/dL (75-110); Potassium 3.5 mmol/L (3.4-5.0); Sodium 136 mmol/L (137-145)
[2021-05-03 07:29] LABS: CRP 16.4 mg/dL (<1.0)
[2021-05-03] MEDS: LACTATED RINGERS 500 ML 100 ML IV CONT (09:00)
[2021-05-03] MEDS: AMPICILLIN SULB 3 GM/NS 100 ML 3 GM/100 ML VIAL IVPB ×2 (10:10→17:57)
--- NOTE | 2021-05-03 12:06 | PM.IMPN ---
Progress Note: A&P Assessment and Plan (1) Sepsis: Qualifiers: Acute respiratory failure type: with hypoxia Sepsis acute organ dysfunction status: with acute organ dysfunction Sepsis type: sepsis due to unspecified organism Severe sepsis acute organ dysfunction type: acute respiratory failure Severe sepsis shock status: without septic shock Qualified Code(s): A41.9 - Sepsis, unspecified organism; R65.20 - Severe sepsis without septic shock; J96.01 - Acute respiratory failure with hypoxia Code(s): A41.9 - Sepsis, unspecified organism Status: Acute Assessment and Plan: The patient met sepsis criteria on admission with tachycardia, tachypnea, hypotension, leukocytosis, hypoxemia and lactic acidosis in the setting of acute right upper lobe community acquired pneumonia. The patient received 2-3 L of isotonic fluids in the ER with resolution of his tachycardia, lactic acidosis and hypotension. The patient had been started on empiric antibiotic therapy with Rocephin and azithromycin for Community acquired pneumonia on arrival, but after further discussion with Pulmonology Dr. Zaragoza, it was decided we needed to obtain a CT Chest with contrast which showed Extensive necrotizing pneumonia in right lung upper lobe. Mild pneumonia involving right lower lobe, right middle lobe, and left upper lobe. Mild right hilar and mediastinal lymphadenopathy, likely reactive. Moderate emphysema. Discussed with Dr. Zaragoza who recommended the patient have a Bronchoscopy since there has been no growth of sputum culture to help us direct antibiotic therapy. Switched IV Antibiotics to broad spectrum- IV Unasyn and Vancomycin due to Necrotizing Pneumonia (Day #1), was on IV Azithromycin + Ceftriazone for #4 days prior Plan for Bronchoscopy today 05/03/21 to obtain cultures and further evaluation. Appreciate Pulmonology's input. Sputum culture shows normal oral luigi with no growth to date Blood cultures negative to date Continue monitoring vitals, labs (2) Pneumonia involving right lung: Qualifiers: Lung location: upper lobe of lung Pneumonia type: due to unspecified organism Qualified Code(s): J18.9 - Pneumonia, unspecified organism Code(s): J18.9 - Pneumonia, unspecified organism Status: Acute Assessment and Plan: See above (3) COPD (chronic obstructive pulmonary disease): Code(s): J44.9 - Chronic obstructive pulmonary disease, unspecified Status: Acute Assessment and Plan: The patient does not have a known diagnosis of COPD but he does have hyperinflation on his x-ray and given his significant smoking history he meets clinical criteria for COPD. Patient did receive 1 dose of IV Solu-Medrol in the ER. He is not overtly hypoxic but does have some hypoxemia. He has not had any more steroids since ER. No acute wheezing. CT shows moderate emphysema, will discuss with Pulmonology for discharge medications when it becomes times. Continue Duoneb treatments at this time Continue Duoneb treatments Q6hrs. No significant wheezing on examination. (4) Hypoxemia: Code(s): R09.02 - Hypoxemia Status: Inactive Assessment and Plan: On room air at this time. Initially was hypoxic in the emergency room but was able to be weaned off. Due to underlying pneumonia. (5) Hypokalemia: Code(s): E87.6 - Hypokalemia Status: Acute Assessment and Plan: Potassium 3.5 this morning, stable. Recheck in the morning. (6) Lactic acidosis: Code(s): E87.2 - Acidosis Status: Acute Assessment and Plan: Normal now. (7) Vitamin D deficiency: Code(s): E55.9 - Vitamin D deficiency, unspecified Status: Acute Assessment and Plan: Found to be se
--- NOTE | 2021-05-03 12:32 | PM.CNPUL ---
Assessment and Plan Assessment and plan (1) Pneumonia involving right lung: Qualifiers: Lung location: upper lobe of lung Pneumonia type: due to unspecified organism Qualified Code(s): J18.9 - Pneumonia, unspecified organism Code(s): J18.9 - Pneumonia, unspecified organism Status: Acute Assessment and Plan: He has a severe necrotizing pneumonia in the RUL with sepsis on presentation. He is slowly responding to Rx for community acquired pneumonia. Will proceed with bronchoscopy to obtain cultures, inspect airway for obstruction, clear secretions, and will await results while he is on new antibiotics, Unasyn and vancomycin. (2) COPD (chronic obstructive pulmonary disease): Qualifiers: COPD type: unspecified COPD Qualified Code(s): J44.9 - Chronic obstructive pulmonary disease, unspecified Code(s): J44.9 - Chronic obstructive pulmonary disease, unspecified Status: Acute Assessment and Plan: Will need PFTs after discharge. Has hyperinflation on imaging. Rx with bronchodilators. (3) History of tobacco abuse: Code(s): Z87.891 - Personal history of nicotine dependence Status: Acute Assessment and Plan: Started age 10, now smokes = 2 ppd, rolls his own cigarettes. Tobacco cessation is obviously important. History of Present Illness History of Present Illness Consult date: 05/03/21 Requesting physician: Sanjana Perdomo PA-C Reason for consult: pneumonia Chief complaint: COPD exacerbation/Bacterial pneumonia Narrative: NEW: Moshe Varma is a 55 year old male admitted April 29 with severe necrotizing pneumonia with opacification of the right upper lobe and sepsis with tachycardia, tachypnea, hypotension, leukocytosis, hypoxemia and lactic acidosis initial value 3.7. Initial ABG = pH 7.53 / 27/ 53 on room air, hyperventilation and hypoxemia. The patient received 2-3 L of isotonic fluids in the ER with resolution of his tachycardia, lactic acidosis and hypotension. He was placed on Rocephin and azithromycin, and has negative cultures with slow resolution of the infiltrate. He remains short of breath and continues to cough thick darkish brown to green sputum. He has not had recurrent respiratory infections in the past. He has no documented underlying lung disease. His BMI is 15.9 and he has poor dentition. I was consulted to help evaluate and treat his complicated pneumonia. He had a chest CT 05/02 showing no mass or enlarged lymph nodes, which was a concern looking at the CXR. This patient has had no hemoptysis, difficulty swallowing, has not been living in a group setting, has no known exposure to TB, and never had a PPD. He reports feeling sick for 1-2 weeks prior to presenting for treatment. He has been trying to work but it has been difficult. 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 He says that he is lost weight recently, has no idea how much. He does not go to get regular healthcare, and does not provide much history. Review of Systems Review of Systems: Narrative: wt loss of unknown amount Gastrointestinal: Gastrointestinal: Denies change in stool character, Denies dysphagia, Denies dyspepsia, Denies heartburn and Denies hematemesis Comments: no heartburn Genitourinary: Genitourinary: Denies urinary frequency and Denies urinary hesitancy Hematologic/Lymphatic: Hematologic/Lymphatic: Denies easy bleeding and Denies easy bruising PMFSH Past Medical History Medical History (Updated 05/03/21 @ 13:46 by Vera Zaragoza MD) Tobacco dependence due to cigarettes Surgical History Surgical History (Updated 04/29/21 @ 22:32 by Natasha John DO) No history of previous surgery Family History Family History (Reviewed 04/29/21 @ 22:33 by Adriana
[2021-05-03] MEDS: LACTATED RINGERS 1,000 ML 150 ML IV CONT (12:52)
--- NOTE | 2021-05-03 12:56 | WPDANESEPPF ---
Anes - Initial Pre Proc Eval Procedure: Operation Date: 05/03/21 13:00 Proposed Procedures p Flexible Bronchoscopy - Vera Zaragoza MD Date/Time: 05/03/21 12:56 Surgeon: Sanjana Perdomo PA-C Pre Op Diagnosis: COPD exacerbation/Bacterial pneumonia Patient Data Age: 55 Gender: M Height: 5 ft 10 in Weight: 50.4 kg Last Vital Signs Temp 98.5 F 05/03/21 12:31 Pulse 81 05/03/21 12:31 Resp 18 05/03/21 12:31 BP 99/67 L 05/03/21 12:31 Pulse Ox 81 L 05/03/21 12:31 Allergies Allergy/AdvReac Type Severity Reaction Status Date / Time No Known Allergies Allergy Verified 04/29/21 18:14 Home Medications Medication Instructions Recorded Confirmed Type No Home Medications 04/29/21 04/29/21 History Laboratory Tests 05/03/21 05/03/21 06:07 06:07 WBC 13.8 K/mm3 H K/mm3 (4.5-10.0) RBC 3.68 M/mm3 L M/mm3 (4.6-6.20) Hgb 12.1 g/dL L g/dL (14.0-18.0) Hct 35.9 % L % (42.0-52.0) MCV 97.6 fl fl (80-100) MCH 32.9 pg pg (26-34) MCHC 33.7 g/dl g/dl (32-36) RDW 13.0 % % (11.5-14.5) Plt Count 369 k/mm3 k/mm3 (150-375) MPV 10.4 fl fl (7.4-10.4) Immature Gran % (Auto) 1.8 % H % (0-0.5) Neut % (Auto) 75.6 % H % (45.5-73.1) Lymph % (Auto) 12.7 % L % (18.3-44.2) [place] % (Auto) 8.6 % H % (2.6-8.5) Eos % (Auto) 0.6 % % (0-4.4) Baso % (Auto) 0.7 % % (0.2-1.2) Lymph # (Auto) 1.75 K/mm3 K/mm3 (0.9-3.2) [place] # (Auto) 1.2 K/mm3 H K/mm3 (0.1-0.6) Eos # (Auto) 0.1 K/mm3 K/mm3 (0-0.3) Baso # (Auto) 0.1 K/mm3 K/mm3 (0.0-0.1) Abs Immat Gran (auto) 0.25 K/mm3 H K/mm3 (0.00-0.031) Absolute Neuts (auto) 10.4 K/mm3 H K/mm3 (1.3-6.7) Absolute Nucleated RBC 0.0 K/mm3 K/mm3 (0.0-0.012) Nucleated RBC % 0.0 % % (0.0-0.2) Sodium 136 mmol/L L mmol/L (137-145) Potassium 3.5 mmol/L mmol/L (3.4-5.0) Chloride 110 mmol/L H mmol/L (98-107) Carbon Dioxide 19 mmol/L L mmol/L (22-30) Anion Gap 7 mmol/L L mmol/L (8-16) BUN 13 mg/dL mg/dL (9-20) Creatinine 0.60 mg/dL L mg/dL (0.7-1.3) Estim Creat Clear Calc 82 ml/min ml/min Estimated GFR > 60 (59 - ) Glucose 105 mg/dL mg/dL (75-110) Calcium 7.9 mg/dL L mg/dL (8.4-10.2) C-Reactive Protein 16.4 mg/dL H mg/dL (<1.0) Patient hx anesthesia problems: none Family hx anesthesia problems: none [facility] Past Medical History Medical History (Updated 05/02/21 @ 15:14 by Sanjana Perdomo PA-C) Tobacco dependence due to cigarettes Surgical History Surgical History (Updated 04/29/21 @ 22:32 by Natasha John DO) No history of previous surgery Family History Family History Mother Hypertension Father Cerebrovascular accident, Onset Age: 41 Social History Social History (Updated 05/03/21 @ 12:36 by Vera Zaragoza MD) Social History: He lives in [place] with his girlfriend, Edith. He has never been . Has 1 daughter who is 36 years old. He has smoked between 1-2.5 packs of cigarettes a day since he was 10 years old. He denies any alcohol or illicit substance use. He works for an [employer]. He rolls his own cigarettes. Smoking packs per day: 2.5 Smoking cigarettes per day: 50.0 Years smoked: 45 Smoking pack-years: 112.50 Smoking status: Current every day smoker Tobacco type: cigarettes Alcohol intake: never Substance use type: does not use Gender identity (if verbalized by the patient): Male Spiritual care concerns: No Anes - Eval Final PreProcedure Day of Procedure 05/03/21 12:56 Patient weight: normal Heart: regular rate and rhythm Lungs: clear to auscultation Airway: Mallampati scale class II (poor dentition none loose) Neurologica
[2021-05-03] MEDS: SODIUM CHLORIDE 0.9% IV 500 ML BAG 200 ML IRRIGATION (14:11)
--- NOTE | 2021-05-03 14:58 | SUR.PHASEII ---
1435 Sitting upright on stretcher post bronchoscopy. Frequent non productive coughing, aggitation, attempting to get up to urinate, urinal and bedpan offered. Recovery nurse at bedside, oxygen remains at 10L per face mask, B/p reading high due to moving to use urinal. 1500 Dr Zaragoza at bedside to see patient.
--- NOTE | 2021-05-03 15:10 | PCRCNOTE ---
Window of time for administration has passed. See next scheduled administration.
--- NOTE | 2021-05-03 15:26 | SUR.PHASEII ---
1515 Report called to SANTANA Bain. Respiratory called for scheduled breathing treatment and to assess use of simple mask versus alternate oxygen source.
--- NOTE | 2021-05-03 15:36 | SUR.PHASEII ---
1536 Respiratory at bedside to administer nebulizer treatment that was missed at 1400 due to being in procedure. Dr Byrd anesthesia agrees to returning patient to room 326 post procedure.
[2021-05-04] VITALS (15 sets, daily range): BP systolic 96–110; BP diastolic 54–64; PULSE 86–97; RESP 18–28; TEMP 36.6–37.2; O2SAT 91–99
[2021-05-04] MEDS: AMPICILLIN SULB 3 GM/NS 100 ML 3 GM/100 ML VIAL IVPB ×5 (01:17→23:38)
[2021-05-04] MEDS: ALBUTEROL SULFATE NEB 2.5 MG/0.5 ML INH 5 MG INHALATION ×4 (03:22→20:59)
[2021-05-04] MEDS: IPRATROPIUM BR 0.02% INH SOLN 0.5 MG/2.5 ML VIAL INHALATION ×4 (03:22→20:59)
[2021-05-04 06:40] LABS: Basophils Absolute Auto 0.1 K/mm3 (0.0-0.1); Basophils Percent Auto 0.8 % (0.2-1.2); Eosinophils Absolute Auto 0.1 K/mm3 (0-0.3); Eosinophils Percent Auto 0.8 % (0-4.4); Hemoglobin 11.1 g/dL (14.0-18.0); Immature Granulocyte Absolute 0.14 K/mm3 (0.00-0.031); Immature Granulocyte Percent A 1.1 % (0-0.5); Lymphocytes Absolute Auto 1.38 K/mm3 (0.9-3.2); Lymphocytes Percent Auto 11.3 % (18.3-44.2); Mean Corpuscular HGB Conc 33.6 g/dl (32-36); Mean Corpuscular Volume 98.2 fl (80-100); Mean Platelet Volume 10.1 fl (7.4-10.4); Monocytes Absolute Auto 0.9 K/mm3 (0.1-0.6); Monocytes Percent Auto 7.4 % (2.6-8.5); Neutrophils Absolute Auto 9.6 K/mm3 (1.3-6.7); Neutrophils Percent Auto 78.6 % (45.5-73.1); Platelet Count Result 346 k/mm3 (150-375); Red Blood Count 3.36 M/mm3 (4.6-6.20); Red Cell Distribution Width 13.1 % (11.5-14.5); White Blood Count 12.2 K/mm3 (4.5-10.0)
[2021-05-04 07:03] LABS: Anion Gap 5 mmol/L (8-16); Blood Urea Nitrogen 8 mg/dL (9-20); Calcium 7.4 mg/dL (8.4-10.2); Carbon Dioxide 22 mmol/L (22-30); Chloride 109 mmol/L (98-107); Estimated CRCL calculation 97 ml/min; Estimated Glomerular Filt Rate > 60; Glucose 94 mg/dL (75-110); Magnesium 1.7 mg/dL (1.6-2.3); Potassium 3.4 mmol/L (3.4-5.0); Sodium 136 mmol/L (137-145)
[2021-05-04 07:12] LABS: CRP 15.1 mg/dL (<1.0)
--- NOTE | 2021-05-04 11:12 | PM.IMPN ---
Progress Note: A&P Assessment and Plan (1) Sepsis: Qualifiers: Acute respiratory failure type: with hypoxia Sepsis acute organ dysfunction status: with acute organ dysfunction Sepsis type: sepsis due to unspecified organism Severe sepsis acute organ dysfunction type: acute respiratory failure Severe sepsis shock status: without septic shock Qualified Code(s): A41.9 - Sepsis, unspecified organism; R65.20 - Severe sepsis without septic shock; J96.01 - Acute respiratory failure with hypoxia Code(s): A41.9 - Sepsis, unspecified organism Status: Acute Assessment and Plan: The patient met sepsis criteria on admission with tachycardia, tachypnea, hypotension, leukocytosis, hypoxemia and lactic acidosis in the setting of acute right upper lobe community acquired pneumonia. The patient received 2-3 L of isotonic fluids in the ER with resolution of his tachycardia, lactic acidosis and hypotension. The patient had been started on empiric antibiotic therapy with Rocephin and azithromycin for Community acquired pneumonia on arrival, but after further discussion with Pulmonology Dr. Zaragoza, it was decided we needed to obtain a CT Chest with contrast which showed Extensive necrotizing pneumonia in right lung upper lobe. Mild pneumonia involving right lower lobe, right middle lobe, and left upper lobe. Mild right hilar and mediastinal lymphadenopathy, likely reactive. Moderate emphysema. Discussed with Dr. Zaragoza who recommended the patient have a Bronchoscopy since there has been no growth of sputum culture to help us direct antibiotic therapy. Switched IV Antibiotics to broad spectrum- IV Unasyn and Vancomycin due to Necrotizing Pneumonia (Day #2), was on IV Azithromycin + Ceftriazone for #4 days prior Patient had a Bronchoscopy 05/03/21 and obtained cultures and further evaluation. Since bronchoscopy the patient has been coughing, and hypoxic requiring initially 10L high flow, and has since been titrated down to 4L via NC and appears much more comfortable. Appreciate Pulmonology's input. Sputum culture shows Group C Strep. Blood cultures negative to date Continue monitoring vitals, labs (2) Acute respiratory failure with hypoxia: Code(s): J96.01 - Acute respiratory failure with hypoxia Status: Acute Assessment and Plan: See above. (3) Pneumonia involving right lung: Qualifiers: Lung location: upper lobe of lung Pneumonia type: due to unspecified organism Qualified Code(s): J18.9 - Pneumonia, unspecified organism Code(s): J18.9 - Pneumonia, unspecified organism Status: Acute Assessment and Plan: See above (4) COPD (chronic obstructive pulmonary disease): Qualifiers: COPD type: unspecified COPD Qualified Code(s): J44.9 - Chronic obstructive pulmonary disease, unspecified Code(s): J44.9 - Chronic obstructive pulmonary disease, unspecified Status: Acute Assessment and Plan: The patient does not have a known diagnosis of COPD but he does have hyperinflation on his x-ray and given his significant smoking history he meets clinical criteria for COPD. Patient did receive 1 dose of IV Solu-Medrol in the ER. He is not overtly hypoxic but does have some hypoxemia. He has not had any more steroids since ER. No acute wheezing. CT shows moderate emphysema, will discuss with Pulmonology for discharge medications when it becomes times. Continue Duoneb treatments at this time Continue Duoneb treatments Q6hrs. No significant wheezing on examination. (5) Hypokalemia: Code(s): E87.6 - Hypokalemia Status: Acute Assessment and Plan: Potassium 3.4 this morning, replenished. Mag 1.7, replenished. Recheck in the morning. (6) Lactic acidosis: Code(s): E87.2 - Acidosis Status: Acute Assessment and Plan: Tamra
[2021-05-04] MEDS: MAGNESIUM SULF 2 GM/WATER 50ML 2 GM/50 ML BAG IVPB (12:14)
[2021-05-04] MEDS: POTASSIUM CHLORIDE 20 MEQ TABLET 40 MEQ PO (13:39)
[2021-05-04] MEDS: ENOXAPARIN 40 MG/0.4 ML SYRINGE SUB-Q (13:40)
--- NOTE | 2021-05-04 14:04 | PM.PNPUL ---
Progress Note: A&P Assessment and Plan (1) History of tobacco abuse: Code(s): Z87.891 - Personal history of nicotine dependence Status: Acute (2) COPD (chronic obstructive pulmonary disease): Qualifiers: COPD type: unspecified COPD Qualified Code(s): J44.9 - Chronic obstructive pulmonary disease, unspecified Code(s): J44.9 - Chronic obstructive pulmonary disease, unspecified Status: Acute (3) Pneumonia involving right lung: Qualifiers: Lung location: upper lobe of lung Pneumonia type: due to unspecified organism Qualified Code(s): J18.9 - Pneumonia, unspecified organism Code(s): J18.9 - Pneumonia, unspecified organism Status: Acute Subjective Date/time seen: 05/04/21 14:04 Patient is seen in follow up after bronchoscopy yesterday 05/03 for severe necrotizing pneumonia involving right lung, especially RUL. He was hypoxemic afterwards due to BAL with 150 ml of fluid used during procedure. He was on 10 L/min afterwards, and this has been weaned to 3 L/min. He is coughing and is able to expectorate sputum. Review of Systems ENT: Denies dysphagia Exam Narrative: Exam Narrative: Alert, responsive, can speak in sentences, 3 L/min Const: General: no acute distress HENMT: Head: normal to inspection General nose exam: Normal external nose present Teeth and gingiva: poor dentition (multiple missing teeth, periodontal disease) Throat: posterior oropharynx normal Eyes: General: appearance normal, both eyes and all related structures Neck: Neck: no JVD Resp: Auscultation: rhonchi ( expiratory rhonchi) throughout and diminished lung sounds Cardio: Rate: regular rate Rhythm: regular rhythm Heart sounds: no murmurs and no rubs GI: Auscultation: normal bowel sounds Skin: General skin exam: normal color and no rashes or lesions noted Extrem: General: normal to inspection ( without clubbing cyanosis or edema) Psych: Mental Status: mental status grossly normal ( says he is anxious, wants out of hospital as soon as possible) Objective Data Vital Signs Vital Signs: Vital Signs - 24 hr 05/03/21 14:19 05/03/21 14:29 05/03/21 14:39 Temperature 36.9 C Pulse Rate 85 94 88 Respiratory Rate 18 18 30 H Blood Pressure 110/74 110/71 160/105 H Pulse Oximetry 94 93 93 05/03/21 14:49 05/03/21 14:59 05/03/21 15:08 Temperature Pulse Rate 105 H 103 H 105 H Respiratory Rate 30 H 28 H 30 H Blood Pressure 162/95 H 167/96 H 165/93 H Pulse Oximetry 93 92 92 05/03/21 15:18 05/03/21 15:28 05/03/21 15:37 Temperature Pulse Rate 111 H 111 H 108 H Respiratory Rate 30 H 30 H 28 H Blood Pressure 140/83 126/86 Pulse Oximetry 92 92 92 05/03/21 15:38 05/03/21 15:47 05/03/21 16:06 Temperature Pulse Rate 114 H 107 H Respiratory Rate 30 H 32 H Blood Pressure 115/69 Pulse Oximetry 95 91 05/03/21 16:10 05/03/21 16:26 05/03/21 16:55 Temperature 36.1 C L 36.1 C L 36.1 C L Pulse Rate 102 H 104 H 96 Respiratory Rate 34 H 36 H 30 H Blood Pressure 121/71 125/74 111/67 Pulse Oximetry 92 99 100 05/03/21 17:55 05/03/21 18:34 05/03/21 20:00 Temperature 36.4 C L Pulse Rate 91 96 Respiratory Rate 30 H 24 H Blood Pressure 109/69 Pulse Oximetry 100 98 95 05/03/21 21:46 05/03/21 21:49 05/03/21 21:52 Temperature 37.3 C Pulse Rate 103 H 103 H 96 Respiratory Rate 24 H 18 Blood Pressure 124/69 Pulse Oximetry 93 96 05/03/21 21:55 05/03/21 22:15 05/03/21 23:59 Temperature 37.3 C Pulse Rate 105 H 97 90 Respiratory Rate 26 H 18 Blood Pressure 112/64 Pulse Oximetry 94 99 05/04/21 03:00 05/04/21 03:24 05/04/21 03:32 Temperature 37.2 C Pulse Rate 95 94 87 Respiratory Rate 18 22 H 22 H Blood Pressure 100/54 L Pulse Oximetry 91 05/04/21 03:33 05/04/21 08:00 05/04/21 08:59 Temperature Pulse Rate 87 86 Respiratory Rate 24 H Blood Pressure Pulse Oximetry 98 94 92 05/04/21 09:00 05/04/21 09:09 06
[2021-05-04 21:12] LABS: Vancomycin Trough < 5.0 ug/mL (10.0-20.0)
[2021-05-05 02:40] VITALS: PULSE 82; RESP 26
[2021-05-05] MEDS: ALBUTEROL SULFATE NEB 2.5 MG/0.5 ML INH 5 MG INHALATION ×2 (02:40→08:13)
[2021-05-05] MEDS: IPRATROPIUM BR 0.02% INH SOLN 0.5 MG/2.5 ML VIAL INHALATION ×2 (02:40→08:13)
[2021-05-05 02:50] VITALS: PULSE 94; RESP 22
[2021-05-05] MEDS: AMPICILLIN SULB 3 GM/NS 100 ML 3 GM/100 ML VIAL IVPB ×2 (05:24→12:16)
[2021-05-05 06:00] VITALS: BP 112/65; PULSE 87; RESP 20; TEMP 36.7; O2SAT 94
[2021-05-05 06:27] LABS: Basophils Absolute Auto 0.1 K/mm3 (0.0-0.1); Basophils Percent Auto 0.6 % (0.2-1.2); Eosinophils Percent Auto 0.2 % (0-4.4); Hematocrit 35.4 % (42.0-52.0); Hemoglobin 11.8 g/dL (14.0-18.0); Immature Granulocyte Absolute 0.19 K/mm3 (0.00-0.031); Immature Granulocyte Percent A 1.2 % (0-0.5); Lymphocytes Absolute Auto 1.14 K/mm3 (0.9-3.2); Mean Corpuscular HGB Conc 33.3 g/dl (32-36); Mean Corpuscular Hemoglobin 32.6 pg (26-34); Mean Corpuscular Volume 97.8 fl (80-100); Mean Platelet Volume 9.6 fl (7.4-10.4); Monocytes Absolute Auto 1.2 K/mm3 (0.1-0.6); Monocytes Percent Auto 7.1 % (2.6-8.5); Neutrophils Absolute Auto 13.7 K/mm3 (1.3-6.7); Neutrophils Percent Auto 83.9 % (45.5-73.1); Platelet Count Result 410 k/mm3 (150-375); Red Blood Count 3.62 M/mm3 (4.6-6.20); Red Cell Distribution Width 12.9 % (11.5-14.5); White Blood Count 16.3 K/mm3 (4.5-10.0)
[2021-05-05 07:29] LABS: Anion Gap 6 mmol/L (8-16); Blood Urea Nitrogen 9 mg/dL (9-20); CRP 13.5 mg/dL (<1.0); Calcium 7.5 mg/dL (8.4-10.2); Carbon Dioxide 20 mmol/L (22-30); Chloride 109 mmol/L (98-107); Estimated CRCL calculation 118 ml/min; Estimated Glomerular Filt Rate > 60; Glucose 91 mg/dL (75-110); Potassium 3.8 mmol/L (3.4-5.0); Sodium 135 mmol/L (137-145)
[2021-05-05 08:14] VITALS: PULSE 88; RESP 22; O2SAT 95
[2021-05-05 08:26] VITALS: PULSE 92; RESP 22
[2021-05-05 09:18] VITALS: O2SAT 92
[2021-05-05] MEDS: ENOXAPARIN 40 MG/0.4 ML SYRINGE SUB-Q (09:42)
[2021-05-05 11:19] LABS: Vitamin D 1,25 (OH)2 Total 70 pg/mL (18-72); Vitamin D2 1,25 (OH)2 <8 pg/mL; Vitamin D3 1,25 (OH)2 70 pg/mL
--- NOTE | 2021-05-05 12:47 | PM.DS ---
DS: Admitting Diagnosis Admitting Diagnosis Admitting Diagnosis: SOB DS: Discharge Diagnosis Discharge Diagnosis (1) Sepsis: Qualifiers: Acute respiratory failure type: with hypoxia Sepsis acute organ dysfunction status: with acute organ dysfunction Sepsis type: sepsis due to unspecified organism Severe sepsis acute organ dysfunction type: acute respiratory failure Severe sepsis shock status: without septic shock Qualified Code(s): A41.9 - Sepsis, unspecified organism; R65.20 - Severe sepsis without septic shock; J96.01 - Acute respiratory failure with hypoxia Code(s): A41.9 - Sepsis, unspecified organism Status: Acute Assessment and Plan: The patient is a 55-year-old man with a history of chronic tobacco abuse, who has not seen a doctor in years, who presented to emergency room with shortness of breath, productive green sputum and generalized weakness which is been going on for at least 1 week. The patient met sepsis criteria on admission with tachycardia, tachypnea, hypotension, leukocytosis, hypoxemia and lactic acidosis in the setting of acute right upper lobe community acquired pneumonia. The patient received 2-3 L of isotonic fluids in the ER with resolution of his tachycardia, lactic acidosis and hypotension. The patient had been started on empiric antibiotic therapy with Rocephin and azithromycin for Community acquired pneumonia on arrival, but after further discussion with Pulmonology Dr. Zaragoza, it was decided we needed to obtain a CT Chest with contrast which showed Extensive necrotizing pneumonia in right lung upper lobe. Mild pneumonia involving right lower lobe, right middle lobe, and left upper lobe. Mild right hilar and mediastinal lymphadenopathy, likely reactive. Moderate emphysema. Discussed with Dr. Zaragoza who recommended the patient have a Bronchoscopy since there has been no growth of sputum culture to help us direct antibiotic therapy. Patient had a Bronchoscopy 05/03/21 and obtained cultures which are still pending at this time. Switched IV Antibiotics to broad spectrum- IV Unasyn and Vancomycin due to Necrotizing Pneumonia (Day #3), was on IV Azithromycin + Ceftriazone for #4 days prior. The patient was breathing much better today, resting comfortably on room air and when he was walking around his oxygen saturation between 94 and 93%. Talked to the lubrication equipment servicer, Dr. Zaragoza who recommended placing the patient on oral Augmentin twice daily for 4 weeks due to his necrotizing pneumonia. Pulmonology will follow-up on his results of the bronchoscopy in case they comes back abnormal and we need to adjust his antibiotics accordingly. Explained to the patient the importance of coming back to the emergency room if he is not feeling any better, continuing to get worse or having any other concerns. He understands and agrees the plan all questions answered. The patient does not have a known diagnosis of COPD but he does have hyperinflation on his x-ray and given his significant smoking history he meets clinical criteria for COPD. Patient did receive 1 dose of IV Solu-Medrol in the ER. He is not overtly hypoxic but does have some hypoxemia. He has not had any more steroids since ER. He did not have any steroids during hospitalization, but just prior to discharge he was wheezing, so I talked to Dr. Zaragoza who recommended placing him on a Prednisone taper. The patient was also started on Symbicort, Spiriva, Albuterol Rescue Inhaler. Instructed to follow up with Pulmonology in a few weeks, repeat CXR in 3 weeks and find a primary care provider. (2) Acute respiratory failure with hypoxia: Code(s): J96.01 - Acute respiratory failure with hypoxia Status: Acute Assessment and Plan: See above. (3) Pneumonia involving right lung: Qualifiers: Lung location: upper lobe of lung Pneumonia type:
--- NOTE | 2021-05-05 13:25 | PCRCNOTE ---
SPIRIVA NOT GIVEN; R.N. STATES IT IS BEING CALLED INTO THE PT.'S PHARMACY FOR DISCHARGE.
[2021-05-05] MEDS: predniSONE 40 MG, predniSONE 10 MG 50 MG PO (13:41)
== END 2021-05-05 14:45 | disposition home or self-care (01) | DRG 871 ==
LOC: ANHED 15:12 → ANH3MEDSUR 16:35
PROVIDERS: Internal Medicine; Internal Medicine Critical Care Medicine; Physician Assistant; Admitting Provider Family Medicine; Emergency Provider Emergency Medicine; Visit Provider Internal Medicine
PROC: 0BJ08ZZ Inspection of Tracheobronchial Tree, Via Natural or Artificial Opening Endoscopic (ICD-10-PCS; CPT 31622; principal; 2021-05-03 13:00)
DX: A41.9 Sepsis, unspecified organism (principal); J96.01 Acute respiratory failure with hypoxia; J18.9 Pneumonia, unspecified organism; J44.0 Chronic obstructive pulmonary disease with (acute) lower respiratory infection; E87.2 Acidosis; R64 Cachexia; Z68.1 Body mass index [BMI] 19.9 or less, adult; R65.20 Severe sepsis without septic shock; Z20.822 Contact with and (suspected) exposure to COVID-19; E87.6 Hypokalemia; E55.9 Vitamin D deficiency, unspecified; E88.09 Other disorders of plasma-protein metabolism, not elsewhere classified; E83.51 Hypocalcemia; R74.01 Elevation of levels of liver transaminase levels; F17.210 Nicotine dependence, cigarettes, uncomplicated
CPT/HCPCS: 36415; 36600; 71046; 71260; 76705; 80048; 80053; 80074; 80202; 82306; 82330; 82375; 82652; 82805; 83050; 83519; 83605; 83735; 83970; 84132; 85025; 85027; 85610; 85730; 86140; 87040; 87070; 87147; 87205; 87449; 87899; 93005; 94640; 94762; 96361; 96365; 96367; 96372; 96375; 99285; A9270; C9803; G0378; J0295; J0330; J0456; J0696; J1650; J2704; J2930; J3370; J3475; J7030; J7040; J7120; J7512; Q9967; U0003; U0005